=== PATIENT | male | born 1945 | race Native Hawaiian/Other Pacific Islander ===

== ENCOUNTER 2020-03-13 19:02 | Emergency (ER) | payer OTHER ==
[~2020-03-13] VITALS: Ht 167.6 cm; Wt 65.0 kg
[2020-03-13 19:46] LABS: POTASSIUM 4.1 mmol/L (3.6-5.2)
[2020-03-13 19:47] LABS: PLATELET COUNT 158 K/uL (142-355)
[2020-03-13 20:12] VITALS: BP 168/92; TEMP 98.1
[2020-03-13] MEDS ORDERED: CARDURA4 MG PO (21:04)
[2020-03-13] MEDS ORDERED: VITAMIN D35000 UNIT PO (21:05)
[2020-03-13] MEDS ORDERED: DOCU SOFT100 MG PO (21:06)
[2020-03-13] MEDS ORDERED: DIVA250T PO (21:06)
[2020-03-13] MEDS ORDERED: MULT VITAMI1 PO (21:06)
[2020-03-13] MEDS ORDERED: DULO60CA2 PO (21:07)
[2020-03-13] MEDS ORDERED: HALO5INJ3 IM (21:08)
[2020-03-13] MEDS ORDERED: HYDROCORTISONE0.5 % EX (21:09)
[2020-03-13] MEDS ORDERED: KETOCONAZOLE21 EX (21:10)
[2020-03-13] MEDS ORDERED: MELATONIN3 MG PO ×2 (21:11→21:12)
[2020-03-13] MEDS ORDERED: MEMA5TAB PO (21:12)
[2020-03-13] MEDS ORDERED: TRAZ100T PO (21:13)
[2020-03-13] MEDS ORDERED: MILK OF MA400 MG/5 M PO (21:13)
[2020-03-13] MEDS ORDERED: TRAM50TA PO (21:14)
[2020-03-13] MEDS ORDERED: ZINC220 MG PO (21:14)
[2020-03-13] MEDS ORDERED: ASCO500T18 PO (21:15)
== END 2020-03-13 20:12 | disposition other institution (70) ==
LOC: ED 19:02
PROVIDERS: Emergency Medicine
DX: F03.91 Unspecified dementia, unspecified severity, with behavioral disturbance (principal); Z11.59 Encounter for screening for other viral diseases; Z04.6 Encounter for general psychiatric examination, requested by authority
CPT/HCPCS: 80053; 81000; 85027; 87635; 93005; 99283; G2023; U00003

== ENCOUNTER 2020-03-17 15:00 | Emergency (ER) | payer OTHER ==
[~2020-03-17] VITALS: Ht 175.3 cm; Wt 64.4 kg
[~2020-03-17 15:00] MED LIST: ASCO500T18 PO; CARDURA4 MG PO; DIVA250T PO; DOCU SOFT100 MG PO; DULO60CA2 PO; HALO5INJ3 IM; HYDROCORTISONE0.5 % EX; KETOCONAZOLE21 EX; MELATONIN3 MG PO; MEMA5TAB PO; MILK OF MA400 MG/5 M PO; MULT VITAMI1 PO; TRAM50TA PO; TRAZ100T PO; VITAMIN D35000 UNIT PO; ZINC220 MG PO
[2020-03-17 17:26] VITALS: BP 149/93; TEMP 98.9
== END 2020-03-17 17:31 | disposition home or self-care (01) ==
LOC: ED 15:00
PROC: 0HQ1XZZ Repair Face Skin, External Approach (ICD-10-PCS; principal; 2020-03-17)
DX: S00.83XA Contusion of other part of head, initial encounter (principal); W19.XXXA Unspecified fall, initial encounter; Y93.89 Activity, other specified; Y92.238 Other place in hospital as the place of occurrence of the external cause; S01.111A Laceration without foreign body of right eyelid and periocular area, initial encounter; R90.82 White matter disease, unspecified
CPT/HCPCS: 99283